=== PATIENT | male | born 1990 | race Caucasian/White ===

== ENCOUNTER 2019-05-08 06:36 | Day surgery (SDC) | payer OTHER ==
[~2019-05-08 06:36] MED LIST: Acetaminophen TAB* 325 MG PO ONE; Buffered Lidocaine 1% SYRIN* 1 ML/SYRINGE INTRADERM ONE; Lactated Ringers 1000 ML Bag* 1,000 ML IV SCH
[2019-05-08] MEDS ORDERED: Buffered Lidocaine 1% SYRIN* 1 ML/SYRINGE INTRADERM ONE (07:59)
[2019-05-08] MEDS ORDERED: Acetaminophen TAB* 325 MG ONE (07:59)
[2019-05-08] MEDS ORDERED: fentaNYL* 50 MCG/ML 5 ML VIAL (250 MCG VIAL) ONE (08:38)
[2019-05-08] MEDS ORDERED: Lidocaine 2% PF * 5 ML VIAL ONE (08:38)
[2019-05-08] MEDS ORDERED: Propofol* 10 MG/ML 20 ML BTL ONE (08:38)
[2019-05-08] MEDS ORDERED: Midazolam* 1 MG/ML 2 ML VIAL (2 MG) ONE (08:38)
[2019-05-08] MEDS ORDERED: Rocuronium* 10 MG/ML VIAL ONE (08:39)
[2019-05-08] MEDS ORDERED: Triamcinolone Acetonide* 40 MG/ML 1 ML VIAL ONE ×2 (09:19→10:32)
[2019-05-08] MEDS ORDERED: Oxymetazoline 0.05% NASAL SPR* 15 ML BTL ONE (09:19)
[2019-05-08] MEDS ORDERED: Lidocaine 2% w/ EPI 1:200,000* 20 ML SDV VIAL ONE (09:20)
[2019-05-08] MEDS ORDERED: Ondansetron INJ* 2 MG/ML VIAL ONE (09:45)
[2019-05-08] MEDS ORDERED: Dexamethasone IV* 4 MG/ML 1 ML (4 MG) ONE (09:45)
[2019-05-08] MEDS ORDERED: Neostigmine Methylsulfate* 3 MG/3 ML SYRINGE ONE (09:47)
[2019-05-08] MEDS ORDERED: Glycopyrrolate IV* 0.2 MG/ML 1 ML VIAL ONE (09:47)
[2019-05-08] MEDS ORDERED: Morphine 10 MG/ML VIAL (1 ml) ONE (09:57)
[2019-05-08] MEDS ORDERED: DiMENhydriNATE IV* 50 MG/ML VIAL IV PUSH PRN (10:04)
[2019-05-08] MEDS ORDERED: HYDROmorphone INJ1* 1 MG/ML SYRINGE IV PRN (10:04)
[2019-05-08] MEDS ORDERED: oxyCODONE TAB* 5 MG TAB PO PRN (10:04)
[2019-05-08] MEDS ORDERED: Naloxone* 0.4 MG/ML 1 ML VIAL IV PRN (10:04)
[2019-05-08] MEDS ORDERED: DiMENhydriNATE IV* 50 MG/ML VIAL ONE (10:54)
[2019-05-08] MEDS ORDERED: Metoprolol Tartrate IV* 1 MG/ML 5 ML VIAL ONE (11:54)
[2019-05-08] MEDS ORDERED: hydrALAZINE IV* 20 MG/ML VIAL IV SLOW PU PRN (11:55)
[2019-05-08] MEDS ORDERED: hydrALAZINE IV* 20 MG/ML VIAL ONE (11:56)
[2019-05-08] MEDS ORDERED: Ibuprofen TAB* 400 MG ONE (12:54)
[2019-05-08 13:53] VITALS: BP 144/93
--- NOTE | 2019-05-08 22:05 | OP ---
OPERATIVE REPORT: DATE OF OPERATION: 05/08/19 - SDS DATE OF : 89 SURGEON: Yusuf Marcus MD PRE-OP DIAGNOSES: 1. Chronic sinusitis. 2. Nasal polyposis. POST-OP DIAGNOSES: 1. Chronic sinusitis. 2. Nasal polyposis. OPERATIVE PROCEDURE: Bilateral videoendoscopic maxillary antrostomy with removal of tissue from both maxillary sinuses, anterior and posterior ethmoidectomy, bilateral frontal duct exploration and removal of tissue from the frontal sinuses, bilateral sphenoid sinusotomy. BRIEF HISTORY: This 28-year-old with pansinusitis, failing medical management including prolonged courses of oral steroids, elected for surgical management. DESCRIPTION OF PROCEDURE: The patient was taken to the operating room, general anesthetic was given, the patient was intubated. Nose was decongested with Afrin placed pledgets. A 0-degree telescope, 30-degree telescope, and other endoscopic sinus surgery instruments utilized. The image guidance system was also utilized and fiducial points were obtained for satisfactory navigation surgery. We initially turned our attention to the left side. Polypectomy was carried out using the microshaver. The uncinate process was identified, shaved out anteriorly. The antrostomy identified, enlarged. Copious amount of thick mucoid suctioning was carried out of the maxillary sinus. Then, we turned our attention to the ethmoidal and resecting the ethmoid both superiorly to the nasal frontal duct area, laterally towards the lamina papyracea, posteriorly towards the skull base. Using the image guidance, the front face of the sphenoid was identified and then a small amount of mucosal tissue was removed, which was obstructing it and the ostium was enlarged. A small curved seeker was then used to expand the nasal frontal duct on the left side and entering with a curved suction into the frontal sinus. Once this was done, the area was packed with Surgicel, Sinu-Foam. We then turned our attention to the right side. Again, similarly lots of polyps were removed to allow adequate visualization of the uncinate region. The uncinate process was peeled out and microshaved away. The antrostomy was further enlarged. Again, hyperplastic mucosa and polypoidal mucosa was removed from the antrum. The ethmoidectomy was carried out coursing superiorly into the nasal frontal duct area, laterally into the lamina papyracea and posteriorly towards the skull base and into the opening of the sphenoid sinus. ostium was enlarged with a punch. We entered the nasal frontal duct and expanded the frontal sinus. Copious irrigation of the frontal sinus was carried out. Then, the area was packed with Sinu-Foam. The patient was then awakened, extubated, and sent to the recovery room in stable condition. Instrument and sponge counts were correct. Blood loss minimal. [id number] #: [id number] [facility]
== END 2019-05-08 13:50 | disposition home or self-care (01) ==
LOC: OR 06:36
PROVIDERS: ATTEND Otolaryngology
DX: J32.8 Other chronic sinusitis (principal); J33.8 Other polyp of sinus; F17.210 Nicotine dependence, cigarettes, uncomplicated
CPT/HCPCS: 88305; A9270-GY; J0360; J1100; J1240; J2250; J2270; J2405; J2704; J2710; J3010; J3301; J3490